=== PATIENT | female | born 1990 | race Caucasian/White ===

== ENCOUNTER 2019-07-20 02:36 | Emergency (ER) | payer MEDICAID ==
[~2019-07-20] VITALS: Ht 175.3 cm; Wt 68.0 kg
[2019-07-20 02:49] VITALS: BP_SYST 111
--- NOTE | 2019-07-20 04:03 | NUR ---
Patient left without being seen.
== END 2019-07-20 04:03 | disposition left against medical advice (07) ==
LOC: SED 02:36
DX: R05 Cough (principal); Z53.21 Procedure and treatment not carried out due to patient leaving prior to being seen by health care provider
CPT/HCPCS: 36415; 86710